=== PATIENT | female | born 1995 | race Hispanic/Latino ===

== ENCOUNTER 2017-10-05 14:53 | Emergency (ER) | payer OTHER ==
[2017-10-05 15:03] VITALS: BP 120/77; RESP 18; TEMP 98.2
--- NOTE | 2017-10-05 15:37 | RAD ---
PROCEDURE: Right Thumb radiographs. HISTORY: RIGHT THUMB INJURY R/O FOREIGN BODY PALMAR ASPECT COMPARISON: None. TECHNIQUE: AP radiograph of the right hand, as well as spot oblique and lateral images of thumb were obtained. FINDINGS: RIGHT THUMB: Normal right thumb, without fracture or focal lesion. Remainder of the right hand (as seen on the AP view) grossly unremarkable. JOINTS: Normal. SOFT TISSUES: No retained radiodense foreign body or emphysema soft tissue change appreciate including the thenar eminence. OTHER FINDINGS: Likely bone island in the triquetrum. IMPRESSION: Unremarkable right thumb radiographs. Likely bone island at the triquetrum.
[2017-10-05] MEDS ORDERED: Bacitracin 500 Units/gm Oint Foilpak UD TOP ONE (15:44)
--- NOTE | 2017-10-05 15:47 | C.PDOC ---
History Of Present Illness 21-year-old female presents to the emergency department with complaints of cut to right thumb. Patient states she works at [employer], was refilling salt and pepper shakers, when one broke, cutting her on the palmar aspect of her right thumb. Pt is unsure of tetanus status, states she is concerned for possible foreign body. She denies sensory changes, fever, discharge, other injuries. Time Seen by Provider: 10/05/17 15:18 Chief Complaint (Nursing): Finger,Hand,&Wrist History Per: Patient History/Exam Limitations: no limitations Current Symptoms Are (Timing): Still Present Severity: Mild Past Medical History Reviewed: Historical Data, Nursing Documentation, Vital Signs Vital Signs: Last Vital Signs Temp 98.2 F 10/05/17 16:00 Pulse 92 H 10/05/17 16:00 Resp 18 10/05/17 16:00 BP 120/77 10/05/17 16:00 Pulse Ox 99 10/08/17 09:15 - Medical History PMH: No Chronic Diseases Family History: States: No Known Family Hx - Social History Hx Alcohol Use: No Hx Substance Use: No - Immunization History Hx Tetanus Toxoid Vaccination: No Hx Influenza Vaccination: No Hx Pneumococcal Vaccination: No Review Of Systems Constitutional: Negative for: Fever, Chills Musculoskeletal: Positive for: Hand Pain Skin: Negative for: Rash Neurological: Negative for: Weakness, Numbness Physical Exam - Physical Exam Appears: Well, Non-toxic, No Acute Distress Skin: Warm, Dry, No Rash Oral Mucosa: Moist Neck: Normal ROM Cardiovascular: Rhythm Regular Respiratory: Normal Breath Sounds, No Rales, No Rhonchi, No Wheezing Extremity: Normal ROM, Capillary Refill (< 2 sec all digits ), No Deformity, Other (0.5cm superficial laceration to palmar aspect of right first digit. No foreign body visible/palpable) Pulses: Left Radial: Normal, Right Radial: Normal Neurological/Psych: Oriented x3, Normal Sensation ED Course And Treatment O2 Sat by Pulse Oximetry: 99 (RA) Pulse Ox Interpretation: Normal - Other Rad right hand xray X-Ray: Interpreted by Me, Viewed By Me (no fx, no foreign body) Progress Note: Pt given PO Keflex, however refused tetanus vaccination. Xray of right hand ordered and reviewed. Bacitracin applied to area by nurse and dressing applied. Rx for Keflex given, and patient instructed to follow up with PMD/clinic in 1-2 days. She understands she should return to ED if symptoms worsen. Disposition Counseled Patient/Family Regarding: Diagnosis, Need For Followup, Rx Given - Disposition Referrals: [facility] [Outside] Disposition: HOME/ ROUTINE Disposition Time: 15:45 Condition: STABLE Additional Instructions: FOLLOW UP WITH YOUR DOCTOR IN 1-2 DAYS USE ANTIBIOTICS UNTIL FINISHED, AND USE MOTRIN OR TYLENOL NEEDED RETURN TO ER IF YOU HAVE ANY PAIN, REDNESS, SWELLING, DISCHARGE, ETC Prescriptions: Cephalexin [Keflex] 500 mg PO BID #14 capsule Instructions: Wound Care (DC) Forms: [employer] ([place]) - Clinical Impression Clinical Impression: Superficial laceration - Scribe Statement The provider has reviewed the documentation as recorded by the Scribe (Chase Trevino) All medical record entries made by the Scribe were at my direction and personally dictated by me. I have reviewed the chart and agree that the record accurately reflects my personal performance of the history, physical exam, medical decision making, and the department course for this patient. I have also personally directed, reviewed, and agree with the discharge instructions and disposition.
[2017-10-05] MEDS ORDERED: Bacitracin 500 Units/gm Oint Foilpak UD ONE (15:55)
[2017-10-05 16:01] VITALS: PULSE 92
[2017-10-05 16:58] VITALS: O2SAT 99
== END 2017-10-05 16:01 | disposition home or self-care (01) ==
LOC: C.ER 14:53
DX: S61.011A Laceration without foreign body of right thumb without damage to nail, initial encounter (principal); W45.8XXA Other foreign body or object entering through skin, initial encounter; Y92.89 Other specified places as the place of occurrence of the external cause; Y99.0 Civilian activity done for income or pay